=== PATIENT | male | born 1980 | race Caucasian/White ===

== ENCOUNTER 2016-07-12 21:10 | Emergency (ER) | payer MEDICAID ==
[2012-04-15 22:25] VITALS: BMI 40.9
== END 2016-07-12 23:11 | disposition home or self-care (01) ==
LOC: D.ER 21:10
DX: B34.9 Viral infection, unspecified (principal); H66.90 Otitis media, unspecified, unspecified ear; E11.9 Type 2 diabetes mellitus without complications; F17.200 Nicotine dependence, unspecified, uncomplicated